=== PATIENT | female | born 1960 | race Caucasian/White ===

== ENCOUNTER 2024-01-26 14:55 | Outpatient (CLI) | payer OTHER, SELFPAY ==
--- NOTE | ~2024-01-26 | XR_ITS ---
EXAMINATION: XR hip BI 2V w AP pelvis DATE: 01/26/2024 15:27 INDICATION: Right hip pain TECHNIQUE: Anteroposterior view of the pelvis and anteroposterior and frog-leg lateral views of the l eft hip and anteroposterior and frog-leg lateral views of the right hip and were obtained. COMPARISON: None. FINDINGS: Bone alignment is normal. No fracture or suspected osteonecrosis. Left hip joint space is relatively preserved. Osteoarthritis with mild nonuniform joint space narrowing and moderate size marginal osteo phytes at the right hip. There is also moderate right and mild left sacroiliac osteoarthritis. Mild o steitis pubis. Severe lower lumbar facet osteoarthritis. IMPRESSION: 1. Moderate right-sided and mild left-sided hip and sacroiliac osteoarthritis. No acute osseous abnor mality. 2. Severe lower lumbar facet osteoarthritis. Reviewed, dictated and finalized at location A. IMPRESSION: 1. Moderate right-sided and mild left-sided hip and sacroiliac osteoarthritis. No acute osseous abnormality. 2. Severe lower lumbar facet osteoarthritis.
== END 2024-01-26 14:56 | disposition home or self-care (01) ==
PROVIDERS: PCP Family Medicine; Visit Provider Orthopaedic Surgery
DX: M16.0 Bilateral primary osteoarthritis of hip (principal); M51.369 Other intervertebral disc degeneration, lumbar region without mention of lumbar back pain or lower extremity pain
CPT/HCPCS: 73521